=== PATIENT | male | born 1950 | race Caucasian/White ===

== ENCOUNTER 2016-09-06 22:07 | Emergency (ER) | payer MEDICARE, MEDICAID ==
[2016-09-06 23:05] LABS: BASO % 0.5 % (0-2); BASO ABSOLUTE COUNT 0.1 tho/cmm (0.0-0.2); EOS % 1.5 % (0-7); EOSINOPHIL ABSOLUTE COUNT 0.1 tho/cmm (0.0-0.7); HGB-HEMOGLOBIN 13.8 gm/dl (13.5-17.0); IMMATURE GRANULOCYTES PERCENT 2.1 % (0-0.3); LYMPH % 25.6 % (20-45); LYMPH ABSOLUTE COUNT 2.5 tho/cmm (0.8-4.5); MCH (MEAN CORPUSCULAR HGB) 33.3 pg (28.0-32.0); MCHC MEAN CORPUSCULAR HGB CONC 34.5 % (32.0-36.0); MCV (MEAN CELL VOLUME) 96.6 fl (82.0-96.0); MEAN PLATELET VOLUME 9.8 cmc (9.4-12.4); MONO % 10.5 % (0-12); NEUTROPHIL ABSOLUTE COUNT 5.8 tho/cmm (1.6-8.0); NEUTROPHIL-AUTOMATED 5.8 tho/cmm (1.6-8.0); NEUTROPHILS % 59.8 % (40-80); PLATELET COUNT 224 tho/cmm (150-450); RED BLOOD COUNT 4.14 mil/cmm (4.40-5.70); RED CELL DISTRIBUTION WIDTH 13.5 % (12.4-16.4); WHITE BLOOD COUNT 9.6 tho/cmm (4.0-10.0)
[2016-09-06 23:10] LABS: INR 0.9 INR (0.9-1.1); PROTHROMBIN TIME 10.7 SECONDS (9.0-13.6)
[2016-09-06 23:17] LABS: URINE BILIRUBIN NEGATIVE (NEG); URINE BLOOD NEGATIVE (NEG); URINE GLUCOSE (UA) NEGATIVE (NEG); URINE KETONE NEGATIVE (NEG); URINE LEUKOCYTE ESTERASE NEGATIVE (NEG); URINE NITRITE NEGATIVE (NEG); URINE PROTEIN NEGATIVE (NEG)
[2016-09-06 23:18] LABS: URINE APPEARANCE CLEAR; URINE COLOR YELLOW
[2016-09-06 23:27] LABS: ALBUMIN 3.7 g/dl (3.5-5.0); ALCOHOL (ETOH) 222 mg/dl (<10); ALKALINE PHOSPHATASE 86 U/L (33-138); ALT/SGPT 16 U/L (12-78); ANION GAP 14 mmol/L (0-20); AST/SGOT 15 U/L (10-40); BILIRUBIN,TOTAL 0.2 mg/dl (0.0-1.5); BLOOD UREA NITROGEN 28 mg/dl (6-24); CALCIUM 8.8 mg/dl (8.5-10.5); CARBON DIOXIDE-VENOUS 26 mmol/L (22-32); CHLORIDE 100 mmol/l (96-110); CREATININE 1.03 mg/dl (0.60-1.30); GLUCOSE 86 mg/dL (70-110); MAGNESIUM 2.4 mg/dl (1.3-2.6); POTASSIUM 4.1 mmol/L (3.7-5.1); SODIUM 136 mmol/L (135-145); eGFR VALUE FOR BLACK 88 mL/Min
[2016-09-06 23:31] LABS: TSH-THYROID STIMULATING HORM. 5.18 uIU/ml (0.40-3.80)
== END 2016-09-07 03:07 ==
LOC: EDMED 22:07
PROVIDERS: Emergency Medicine
DX: S09.90XA Unspecified injury of head, initial encounter (principal); F10.129 Alcohol abuse with intoxication, unspecified; Y90.7 Blood alcohol level of 200-239 mg/100 ml; J44.9 Chronic obstructive pulmonary disease, unspecified; F41.9 Anxiety disorder, unspecified; F43.10 Post-traumatic stress disorder, unspecified; F42.9 Obsessive-compulsive disorder, unspecified; F17.210 Nicotine dependence, cigarettes, uncomplicated; W01.0XXA Fall on same level from slipping, tripping and stumbling without subsequent striking against object, initial encounter
CPT/HCPCS: G0480; J3411; J7030